=== PATIENT | male | born 1985 | race Caucasian/White ===

== ENCOUNTER 2019-01-20 19:37 | Emergency (ER) | payer OTHER ==
[~2019-01-20] VITALS: Ht 182.9 cm; Wt 99.8 kg
[2019-01-21] MEDS ORDERED: ZOFRAN8 MG PO (02:03)
[2019-01-21] MEDS ORDERED: LEVSIN/SL0.125 MG SL (02:03)
[2019-01-21] MEDS ORDERED: PEPCID40 MG PO (02:03)
== END 2019-01-21 02:39 | disposition home or self-care (01) ==
LOC: ER 19:37
DX: K29.60 Other gastritis without bleeding (principal)

== ENCOUNTER → 2019-01-21 | Emergency (ER) | payer OTHER ==
[~2019-01-21] VITALS: Ht 182.9 cm; Wt 99.8 kg
[~2019-01-21] MED LIST: LEVSIN/SL0.125 MG SL; PEPCID40 MG PO; ZOFRAN8 MG PO
== END | disposition designated cancer center or children's hospital (05) ==
LOC: ER 10:53
DX: K31.89 Other diseases of stomach and duodenum (principal); K21.9 Gastro-esophageal reflux disease without esophagitis; K44.9 Diaphragmatic hernia without obstruction or gangrene